=== PATIENT | male | born 1985 | race Hispanic/Latino ===

== ENCOUNTER 2023-05-24 15:08 | Inpatient (IN) | payer BC, SELFPAY ==
[2023-05-24 16:33] LABS: INR-International Normal Ratio 0.9; Prothrombin Time 12.5 sec (12.0-14.7)
[2023-05-24 16:47] LABS: Acetaminophen Less than 10 mcg/mL (10.0-30.0); Alcohol Less than 10.0 mg/dL (Less than 10); Salicylate Less than 8.0 mg/dL (15.0-30.0)
[2023-05-24] MEDS ORDERED: Glucagon 1 MG/ML KIT IM PRN (18:09)
[2023-05-24] MEDS ORDERED: Insulin Regular 300 UNITS/3 ML VIAL SC PRN (18:09)
[2023-05-24] MEDS ORDERED: Dextrose 50% Abboject 50 ML SYRINGE SLOW IVP PRN (18:09)
[2023-05-24] MEDS ORDERED: Dextrose 5% in Water 1,000 ML IV PRN (18:09)
[2023-05-24] MEDS ORDERED: HumaLOG 300 UNITS/3 ML VIAL SC PRN (18:09)
[2023-05-24 20:18] VITALS: BMI 32.4
[2023-05-24] MEDS: niCARdipine 25 MG in Sodium Chloride 0.9% 250 ML 250 ML IVPB SCH (21:00)
[2023-05-24] MEDS: Famotidine/PF 20 mg/2ml Vial SLOW IVP SCH (21:08)
[2023-05-24] MEDS: Sodium Chloride 0.9% 1,000 ML IV SCH (21:08)
[2023-05-25] MEDS: niCARdipine 25 MG in Sodium Chloride 0.9% 250 ML 250 ML IVPB SCH ×3 (00:18→09:13)
[2023-05-25 04:49] LABS: #Eosinphils 0.1 thou/uL (0.0-0.7); #Monocytes 0.7 thou/uL (0.11-0.59); #Neutrophils 6.4 thou/uL (1.40-6.50); %Basophils 0.3 % (0.0-1.0); %Eosinophils 1.3 % (0.0-10.0); %Lymphocytes 19.2 % (21.0-51.0); %Monocytes 7.4 % (0.0-10.0); %Neutrophils 71.6 % (42.0-75.0); Hematocrit 47.9 % (42.0-52.0); Hemoglobin 17.1 g/dL (14.0-18.0); Mean Corpuscular HGB CONC 35.7 g/dL (32.0-36.0); Mean Corpuscular Hemoglobin 30.5 pg (27.0-31.0); Mean Corpuscular Volume 85.5 fl (78.0-98.0); Mean Platelet Volume 10.3 fL (7.4-10.4); Platelet Count 369 10x3/uL (130-400); RBC Distribution Width 11.9 % (11.5-14.5); White Blood Cell (WBC) Count 8.9 10x3/uL (4.8-10.8)
[2023-05-25 05:24] LABS: Anion Gap 14 mmol/L (10-20); BUN (Urea Nitrogen) 6 mg/dL (8.9-20.6); Calc. Creatinine Clearance 169 mL/min (70-130); Calcium 8.5 mg/dL (7.8-10.44); Carbon Dioxide 23 mmol/L (22-29); Cardiac Risk 4.8 (Less than 4.5); Chloride 104 mmol/L (98-107); Cholesterol 218 mg/dl (< 200 Desired); Estimated GFR 117; Glucose 212 mg/dL (70-105); HDL Cholesterol 45 mg/dL (>60 Neg Risk); LDL Cholesterol, Calculated 152 mg/dL; Potassium 3.8 mmol/L (3.5-5.1); Sodium 137 mmol/L (136-145); Triglycerides 103 mg/dL (Less than 150)
[2023-05-25] MEDS: Insulin Regular 300 UNITS/3 ML VIAL SC PRN ×2 (05:59→12:22)
[2023-05-25] MEDS: Famotidine/PF 20 mg/2ml Vial SLOW IVP SCH (09:13)
[2023-05-25] MEDS: Sodium Chloride 0.9% 1,000 ML IV SCH (09:19)
[2023-05-25] MEDS ORDERED: metFORMIN 500 MG TAB PO SCH ×2 (09:45→17:00)
[2023-05-25] MEDS ORDERED: Losartan 25 MG TAB PO SCH (09:45)
[2023-05-25] MEDS: metFORMIN 500 MG TAB PO SCH (17:10)
[2023-05-25] MEDS ORDERED: Atorvastatin Calcium 40 MG TAB PO SCH (21:00)
[2023-05-25] MEDS ORDERED: Rosuvastatin 20 MG TAB PO SCH (21:00)
[2023-05-25] MEDS: Labetalol HCl 100 MG/20 ML VIAL SLOW IVP PRN (21:02)
[2023-05-25] MEDS ORDERED: Acetaminophen 500 MG TAB PO SCH (21:30)
[2023-05-25] MEDS ORDERED: hydrALAZINE 20 MG/ML VIAL SLOW IVP SCH (23:45)
[2023-05-26] MEDS ORDERED: Acetaminophen 500 MG TAB PO PRN (01:15)
[2023-05-26] MEDS: Labetalol HCl 100 MG/20 ML VIAL SLOW IVP PRN ×3 (01:58→10:45)
[2023-05-26] MEDS: metFORMIN 500 MG TAB PO SCH (08:42)
[2023-05-26] MEDS ORDERED: Losartan 25 MG TAB PO SCH (09:00)
[2023-05-26] MEDS ORDERED: Amlodipine 5 MG TAB PO SCH (09:00)
[2023-05-26 12:05] VITALS: BP 151/98; TEMP 98.3
== END 2023-05-26 16:35 | disposition home or self-care (01) | DRG 65 ==
LOC: ERS 15:08 → ERHOLD 16:52 → CCU 19:45 → 2SE 05-25 16:31
PROVIDERS: ADMIT Internal Medicine; ATTEND Family Medicine
PROC: 4A10X4Z Monitoring of Central Nervous Electrical Activity, External Approach (ICD-10-PCS; principal; 2023-05-25)
DX: I62.9 Nontraumatic intracranial hemorrhage, unspecified (principal); G81.94 Hemiplegia, unspecified affecting left nondominant side; I16.1 Hypertensive emergency; E66.9 Obesity, unspecified; L72.3 Sebaceous cyst; E11.65 Type 2 diabetes mellitus with hyperglycemia; E78.5 Hyperlipidemia, unspecified; Z87.891 Personal history of nicotine dependence; Z68.32 Body mass index [BMI] 32.0-32.9, adult
CPT/HCPCS: 36415; 36416; 70450; 80048; 80061; 80307; 83036; 84443; 85025; 93306; 95711; 95819; J0360; J1815; J7050; S0028